=== PATIENT | female | born 1955 | race Two or more races ===

== ENCOUNTER 2024-03-08 11:00 | Day surgery (SDC) | payer OTHER ==
[~2024-03-08 11:00] MED LIST: ASA81 MG PO; ATORVASTATIN CA20 MG PO; IRBESARTAN150 MG PO; METFORMIN HCL500 M3 PO; SIMVASTATIN20 MG
[2024-03-08] MEDS ORDERED: ZITHROMAX500 MG PO (18:01)
[2024-03-08] MEDS ORDERED: RINGERS SOLUTION,LACTATED 1,000 ML IV SCH (18:15)
[2024-03-08] MEDS ORDERED: CEFAZOLIN SODIUM 1,000 MG VIAL IV ONE (18:45)
== END 2024-03-08 20:05 | disposition home or self-care (01) ==
LOC: CIR.AMB 11:00
PROVIDERS: ATTEND Obstetrics & Gynecology
DX: N84.0 Polyp of corpus uteri (principal)